=== PATIENT | female | born 1965 | race Caucasian/White ===

== ENCOUNTER → 2016-05-07 | Outpatient (CLI) | payer BC ==
--- NOTE | 2016-05-07 11:12 | MM ---
Reason for exam: clinical finding. Last mammogram was performed 7 months ago. History: Benign left mammotome panel of the left breast, April 10, 2006. Took hormonal contraceptives for 10 years. Physical Findings: Nurse did not find any significant physical abnormalities on exam. MG 3D Diag Mammo W/Cad RT CC and MLO view(s) were taken of the right breast. Prior study comparison: October 04, 2015, bilateral MG 3d screening mammo w/cad. May 19, 2014, bilateral MG screening mammo w CAD. Finding: Architectural distortion in the 12 o'clock position of the right breast. No significant changes in finding since October 04, 2015 and May 19, 2014. These results were verbally communicated with the patient and result sheet given to the patient on 05/07/16. ASSESSMENT: Suspicious, BI-RAD 4 RECOMMENDATION: Ultrasound core biopsy of the right breast. Called Dr. Smith with mammographic findings to return to Dr. Smith's office today for further instruction. PRELIMINARY REPORT CALLED AND FAXED TO DR. SMITH ON 05/07/16 AT 300/TP.
--- NOTE | 2016-05-07 11:14 | USB ---
Reason for exam: clinical finding. History: Benign left mammotome panel of the left breast, April 10, 2006. Took hormonal contraceptives for 10 years. US Breast RT Right breast ultrasound including all four quadrants, the retroareolar region and axilla demonstrates heterogeneous hypervascular tissue around right nipple, no distinct mass seen. Biopsy lesion at 1 o'clock. These results were verbally communicated with the patient and result sheet given to the patient on 05/07/16. ASSESSMENT: Suspicious, BI-RAD 4 RECOMMENDATION: Ultrasound core biopsy of the right breast. (1 o'clock) Called Dr. Smith with mammographic findings to return to Dr. Smith's office today for further instruction. PRELIMINARY REPORT CALLED AND FAXED TO DR. SMITH ON 05/07/16 AT 300/TP.
== END | disposition home or self-care (01) ==
LOC: RADMAMWWP 09:38
PROVIDERS: ATTEND Surgery
DX: N63 Unspecified lump in breast (principal)
CPT/HCPCS: 76641; G0206; G0279

== ENCOUNTER → 2016-06-08 | Outpatient (CLI) | payer BC ==
--- NOTE | 2016-06-08 14:01 | MR ---
MR lumbar spine wo/w con Breast ca, lesion on spine, abnormal PET scan MultiHance Multiplanar, multiecho imaging of the lumbar spine was obtained without contrast on a 3 Kristi magnet. REFERENCE: Report but no images of the previous PET/CT dated 05/18/2016. FINDINGS: There is a lobulated, 1.4 cm lesion within the mid polar region of the right right kidney. Paraspinal soft tissues are otherwise unremarkable. Vertebral body height and alignment are maintained. There are multiple hemangiomas involving the L1, L2 on L3 vertebral bodies. No lytic destructive lesion is seen in the L5 vertebral body. There is no abnormal enhancement within the L5 vertebral body or any other vertebral body. There is no significant compressive discopathy. There is a minimal diffuse disc displacement L4-5. Th e intervertebral foramina are well maintained. There is mild facet arthropathy and capsulitis within the L4-5 and L5-S1 facets. IMPRESSION: 1. NO DEFINITE OSSEOUS METASTASIS AT L5. 2. MILD DEGENERATIVE CHANGE AND FACET ARTHROPATHY WITHOUT SIGNIFICANT COMPRESSIVE DISCOPATHY. 3. MULTIPLE HEMANGIOMAS. 4. IN LIGHT OF THE PATIENT'S PET/CT SCAN A DEDICATED CT SCAN OF THE LUMBAR SPINE WOULD BE SUGGESTED.
== END | disposition home or self-care (01) ==
LOC: RADMRIMAIN 11:39
PROVIDERS: ATTEND Internal Medicine Hematology & Oncology
DX: D18.09 Hemangioma of other sites (principal); M47.816 Spondylosis without myelopathy or radiculopathy, lumbar region; M46.96 Unspecified inflammatory spondylopathy, lumbar region
CPT/HCPCS: 72158; A9577

== ENCOUNTER → 2016-11-03 | Outpatient (CLI) | payer BC ==
--- NOTE | 2016-11-04 09:33 | PE ---
EXAMINATION TYPE: PET CT fusion skull to thigh DATE OF EXAM: 11/03/2016 and MRI lumbar spine 06/08/2016 CLINICAL HISTORY: 51 year-old female restaging breast cancer. Completed chemotherapy on 09/04/2016. Vasquez rgery right breast on April 2016. TECHNIQUE: Following the intravenous administration of 9.88 mCi of F-18 FDG, whole body images are performed from the skull base to the midthigh. Images are reviewed on the computer in the coronal, a xial, and sagittal planes. Reconstructed rotating images are created on independent workstation and reviewed on the computer. A localization and attenuation correction CT is performed in conjunction with the PET scan. Glucose level: 101 mg/dL CTDI: 3.55 mGY DLP: 315.79 mGy-cm COMPARISON: Outside exam 05/18/2016 FINDINGS: PET: Some muscular activity seen along the anterior floor of the mouth. Some mild degenerative uptake along right-sided upper cervical facet joints. Bilateral breast expanders are present in the subpectoral region status post mastectomies. There is a ssociated mild reactive FDG uptake within the overlying soft tissues. No suspicious focal FDG uptake. Resolution of abnormal right axillary uptake. Physiologic FDG uptake within the abdomen and pelvis. The previous left sided L5 lytic lesion is now replaced by sclerosis and shows no discrete FDG uptake . Refer to axial image 24. Similarly, along the left L3 vertebral body, axial image 165, a small focu s of sclerosis is now present. Prior exam demonstrated a tiny lucency in this region. No discrete FDG uptake here. ATTENUATION CORRECTION CT: Polyp or mucosal cyst retention cyst posterior left maxillary sinus is unchanged. Mastoid air cells a re pneumatized. Slight leftward nasal septal deviation. Left anterior chest wall injection port with catheter tip at the cavoatrial junction. Heart is normal size without pericardial effusion. Conventional arch vessel branching anatomy. Mild c entrilobular emphysema with some strandy areas of atelectasis. No consolidation or pleural effusion. No thoracic lymphadenopathy identified. No dilated small bowel, free fluid, or free air. No mesenteric or retroperitoneal lymphadenopathy. Mi ld stool burden. Tiny fatty umbilical hernia. Bladder nondistended. Uterus is visualized. No abnormal fluid collection in the pelvis or pelvic lymp hadenopathy. Bones: As above. IMPRESSION: 1. Status post mastectomies with bilateral tissue expanders and reactive FDG uptake in the subcutane ous tissues of the chest wall. No suspicious uptake to suggest residual disease. 2. Of note, the previous left L5 lytic lesion is now replaced by sclerosis and no longer shows metabo lic activity. This suggests a healed osseous metastasis. Similarly, there is a smaller sclerotic lesi on within the left L3 vertebral body. In retrospect, the 05/18/[address] showed a tiny lytic focus h ere. Again, treated osseous disease is suggested.
== END ==
LOC: RADPETMAIN 14:19
PROVIDERS: ATTEND Radiology Radiation Oncology
DX: C50.411 Malignant neoplasm of upper-outer quadrant of right female breast (principal)
CPT/HCPCS: 78815; A9552

== ENCOUNTER 2023-12-04 06:43 | Day surgery (SDC) | payer BC ==
[2023-12-02 11:30] VITALS: BMI 21.6
[2023-12-04] MEDS ORDERED: LIDOCAINE 1% (10MG/ML) FOR IV START INTRADERMA PRN (06:58)
[2023-12-04 07:11] VITALS: RESP 16; TEMP 98
[2023-12-04] MEDS: IV FLUID CONTINUATION 1,000 ML IV ONE (07:24)
[2023-12-04 07:26] LABS: Glucose,Whole Blood 110 mg/dL (70-110)
[2023-12-04] MEDS: LACTATED RINGERS 1,000 ML IV SCH (07:26)
--- NOTE | 2023-12-04 07:37 | P.GSHP ---
History of Present Illness H&P Date: 12/04/23 CHIEF COMPLAINT: Colon screen HISTORY OF PRESENT ILLNESS: The patient is a 58-year-old female who presents for colon screen. Lower endoscopy was offered for further evaluation and management. PAST MEDICAL HISTORY: Please see list. PAST SURGICAL HISTORY: Please see list. MEDICATIONS: Please see list. ALLERGIES: Please see list. SOCIAL HISTORY: No illicit drug use FAMILY HISTORY: No reports of Crohn disease or ulcerative colitis. REVIEW OF ORGAN SYSTEMS: CONSTITUTIONAL: No reports of fevers or chills. PHYSICAL EXAM: VITAL SIGNS: Stable GENERAL: Well-developed pleasant in no acute distress. HEENT: No scleral icterus. Extraocular movements grossly intact. Moist buccal mucosa. NECK: Supple without lymphadenopathy. CHEST: Unlabored respirations. Equal bilateral excursions. CARDIOVASCULAR: Regular rate and rhythm. Distal 2+ pulses. ABDOMEN: Soft, nontender, nondistended. MUSCULOSKELETAL: No clubbing, cyanosis, or edema. ASSESSMENT: 1. Colon screen. PLAN: 1. Recommend proceeding with a lower endoscopy Past Medical History Past Medical History: Cancer, Diabetes Mellitus Additional Past Medical History / Comment(s): RIGHT BREAST CA, TYPE II DM History of Any Multi-Drug Resistant Organisms: None Reported Past Surgical History: Breast Surgery Additional Past Surgical History / Comment(s): EDU. MASTECTOMY Past Anesthesia/Blood Transfusion Reactions: No Reported Reaction Past Psychological History: Anxiety, Depression Smoking Status: Current some day smoker Past Alcohol Use History: Occasional Past Drug Use History: None Reported Medications and Allergies Home Medications Medication Instructions Recorded Confirmed Type DULoxetine HCL [Cymbalta] 60 mg PO DAILY 12/02/23 12/04/23 History Semaglutide [Ozempic] 2 mg SQ TH 12/02/23 12/02/23 History metFORMIN HCL [Glucophage] 500 mg PO BID 12/02/23 12/04/23 History Allergies Allergy/AdvReac Type Severity Reaction Status Date / Time Latex, Natural Rubber Allergy Itching Verified 12/04/23 07:02 Sulfa (Sulfonamide Allergy Rash/Hives Verified 12/04/23 07:02 Antibiotics) Surgical - Exam Vital Signs Temp Pulse Resp BP Pulse Ox 98.0 F 77 16 121/57 98 12/04/23 07:06 12/04/23 07:06 12/04/23 07:06 12/04/23 07:06 12/04/23 07:06
[2023-12-04] MEDS ORDERED: PROPOFOL 10 MG/ML 20 ML VIAL IV ONE (07:38)
--- NOTE | 2023-12-04 08:17 | P.PCN ---
Date of Procedure: 12/04/23 Description of Procedure: PREOPERATIVE DIAGNOSIS: Personal history of colon polyps Colonoscopy screening POSTOPERATIVE DIAGNOSIS: Tubular adenoma cecum Tubular adenoma descending colon Internal hemorrhoids, grade 2 OPERATION: Colonoscopy to the ileocecal valve and appendiceal orifice, cecum Colonoscopy with cold forceps biopsy SURGEON: Samra Middleton MD. ANESTHESIA: MAC. INDICATIONS: The patient is an 58-year-old female who presents personal history of colon polyps. Last colonoscopy 5 years. Benefits and risks were described and informed consent was obtained. DESCRIPTION OF PROCEDURE: The patient had undergone SuFlave prep. The patient had been brought into the operating room and laid in the left lateral decubitus position. After adequate intravenous sedation, the rectum was examined with 2% lidocaine jelly. External hemorrhoids were encountered. The rectal tone was within normal limits. No lesions were palpated in the rectal vault. An Olympus colonoscope was advanced until the cecum, ileocecal valve and appendiceal orifice were clearly viewed. The prep was fair. No sigmoid diverticulosis was encountered. Colonic polyps were found and removed. No evidence of focal colitis was found. Retroflexion of the scope demonstrated grade 2 internal hemorrhoids without active bleeding or inflammation. The colon was desufflated. The patient had tolerated the procedure well. Withdrawal time was over 6 minutes. FINDINGS: Aronchick preparation quality scale 2+ (1-5) Internal hemorrhoids, grade 2 External hemorrhoids, grade 2. No arteriovenous malformations. No sigmoid diverticulosis Removal of 2 polyps: - Cold forceps biopsy at 50 cm from the anal verge, 3 mm polyp. - Cold forceps biopsy at cecum, 3 mm polyp. No focal colitis. RECOMMENDATIONS: Repeat colonoscopy 3 years, 2026 Plan - Discharge Summary Discharge Rx Participant: No New Discharge Prescriptions: Continue metFORMIN HCL [Glucophage] 500 mg PO BID DULoxetine HCL [Cymbalta] 60 mg PO DAILY Semaglutide [Ozempic] 2 mg SQ TH Discharge Medication List DULoxetine HCL [Cymbalta] 60 mg PO DAILY 12/02/23 [History] Semaglutide [Ozempic] 2 mg SQ TH 12/02/23 [History] metFORMIN HCL [Glucophage] 500 mg PO BID 12/02/23 [History] Follow up Appointment(s)/Referral(s): Samra Middleton MD [STAFF PHYSICIAN] - As Needed Patient Instructions/Handouts: Colorectal Polyps (GEN) Activity/Diet/Wound Care/Special Instructions: Repeat colonoscopy 3 years, 2026 Discharge Disposition: HOME SELF-CARE
[2023-12-04 08:28] VITALS: BP 127/76; PULSE 76
== END 2023-12-04 08:54 | disposition home or self-care (01) ==
LOC: ORWHC2ENDO 06:43
PROVIDERS: ATTEND Surgery Plastic and Reconstructive Surgery
DX: Z12.11 Encounter for screening for malignant neoplasm of colon (principal); D12.0 Benign neoplasm of cecum; D12.4 Benign neoplasm of descending colon; E11.9 Type 2 diabetes mellitus without complications; K64.1 Second degree hemorrhoids; F17.200 Nicotine dependence, unspecified, uncomplicated; Z79.84 Long term (current) use of oral hypoglycemic drugs; Z85.3 Personal history of malignant neoplasm of breast; Z86.010 Personal history of colon polyps; Z87.19 Personal history of other diseases of the digestive system; Z88.1 Allergy status to other antibiotic agents; Z88.2 Allergy status to sulfonamides; Z91.040 Latex allergy status
CPT/HCPCS: 45380; 88305

== ENCOUNTER → 2024-02-25 | Outpatient (CLI) | payer BC ==
[2024-02-25 09:59] VITALS: BP 137/85; PULSE 88; RESP 16; TEMP 97.9
--- NOTE | 2024-02-25 11:10 | P.HPOB ---
History of Present Illness H&P Date: 02/25/24 Chief Complaint: The patient is here for her routine gynecologic exam. This is a 58-year-old G2, P2 with an LMP of 2017. The patient is here to establish with this office. It has been about 2 years since her last Pap and pelvic. She previously saw Dr. Paniagua and Dr. Motnes for her gynecologic care. She is without gynecologic complaints and denies any postmenopausal bleeding. Review of Systems The patient's weight has been stable over the last year. She denies respiratory, cardiac, or G.I. problems. Past Medical History Past Medical History: Cancer, Diabetes Mellitus Additional Past Medical History / Comment(s): RIGHT BREAST CA stage 3(s/p BL mastectomies, chemo and radiation), TYPE II DM. Kidney stones. PAST HIGH SCHOOL MATH TEACHER HISTORY: She has no history of STDs. History of Any Multi-Drug Resistant Organisms: None Reported Past Surgical History: Breast Surgery Additional Past Surgical History / Comment(s): EDU. MASTECTOMY 2016. Bilateral breast reconstruction with implants. Lithotripsy for kidney stones. Colonoscopy 2023(next after 3yr). Past Anesthesia/Blood Transfusion Reactions: No Reported Reaction Past Psychological History: Anxiety, Depression Smoking Status: Current some day smoker (About a pack of cigarettes every 2 weeks.) Past Alcohol Use History: Occasional (Drinks per week.) Past Drug Use History: None Reported Additional History: She has been since 1990. 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 - Past Family History Mother Additional Family Medical History / Comment(s): . Chronic lung issues. A maternal cousin had breast cancer. Father Additional Family Medical History / Comment(s): Heart valve replacement. Medications and Allergies Home Medications Medication Instructions Recorded Confirmed Type DULoxetine HCL [Cymbalta] 60 mg PO DAILY 12/02/23 02/25/24 History Semaglutide [Ozempic] 2 mg SQ TH 12/02/23 02/25/24 History metFORMIN HCL [Glucophage] 500 mg PO BID 12/02/23 02/25/24 History Allergies Allergy/AdvReac Type Severity Reaction Status Date / Time Latex, Natural Rubber Allergy Itching Verified 02/25/24 09:56 Sulfa (Sulfonamide Allergy Rash/Hives Verified 02/25/24 09:56 Antibiotics) Exam Vital Signs Temp Pulse Resp BP Pulse Ox 02/25/24 09:56 97.9 F 88 16 137/85 97 Intake and Output 02/24/24 02/25/24 02/25/24 22:59 06:59 14:59 Other: Weight 62.142 kg Height 5 feet 6 inches, weight 137 pounds, BMI 22.1. This is a well-developed well-nourished [] female who is alert and oriented times 3 in no acute distress. HEENT: Within normal limits. NECK: Supple without mass or thyromegaly. CHEST AND LUNGS: Clear to auscultation. HEART: Regular rate and rhythm. BREASTS: Are without mass or discharge. Breasts are consistent with bilateral mastectomies with implants. There are no nipples or areolas present. AXILLARY EXAM: Negative for adenopathy. BACK: Negative for CVA tenderness. ABDOMEN: Soft, nontender, without palpable masses. PELVIC EXAM: Normal external genitalia with mild atrophy. Cervix and vagina appear normal with mild atrophy. There is no unusual discharge. There is no evidence of prolapse. The uterus is midposition, nongravid size and nontender. There are no palpable adnexal masses or tenderness. RECTAL EXAM: Rectovaginal exam is negative for mass or tenderness and is neg ative for occult blood. EXTREMITIES: Nontender. IMPRESSION: 1. 58-year-old menopausal female with normal gynecologic exam. 2. History of right breast cancer in 2017 and is status post bilateral ma stectomies, chemotherapy, and radiation therapies. No evidence of recurrence on exam today. PLAN: 1. Pap smear cotest was performed. 2. Self breast awareness was discussed with the patient. We have also discussed symptoms associated with inflammatory breast cancer. 3. Mammograms have been discontinued. 4. Osteoporosis prevention was discussed. I have stressed the importance of adequate calcium, vitamin D and regular exercise. Recommended amounts of calcium and vitamin D were also discussed. I have also recommended that she try to quit smoking altogether. She states she had a normal bone density test about 4 years ago done at [facility]. We will plan on repeating the bone density test in 1 year at age 59. 5. She was advised to return in one year for her annual well woman exam.
== END ==
LOC: WWCWWP 09:36
PROVIDERS: ATTEND Obstetrics & Gynecology
DX: Z01.419 Encounter for gynecological examination (general) (routine) without abnormal findings (principal); Z80.3 Family history of malignant neoplasm of breast; Z85.3 Personal history of malignant neoplasm of breast; Z90.13 Acquired absence of bilateral breasts and nipples; Z92.21 Personal history of antineoplastic chemotherapy; Z92.3 Personal history of irradiation; Z91.040 Latex allergy status; Z88.2 Allergy status to sulfonamides; F17.210 Nicotine dependence, cigarettes, uncomplicated